=== PATIENT | male | born 1935 | race Caucasian/White ===

== ENCOUNTER → 2020-02-27 | Outpatient (CLI) | payer MEDICARE, BC ==
--- NOTE | 2020-03-04 09:38 | HM ---
HOLTER MONITOR REPORT DATE OF SERVICE: February 27, 2020. INDICATION: Palpitations. The patient was monitored for 24 hours. The baseline rhythm appeared to be sinus with a minimum heart rate of 41, max 110 and average of 58 beats per minute. Ventricular ectopic events presented in less than 1% of the total beats count and presented as an isolated PVCs only. Supraventricular ectopic events presented in less than 1% of the total beats count as well and presented as an isolated PACs with couplets and triplets. The patient did have one episode of nonsustained ventricular tachycardia seen. No evidence of any significant sinus pause or sinus arrest seen. No evidence of any atrial fibrillation seen. CONCLUSION: 1. Sinus rhythm as a baseline rhythm. 2. Rare ventricular ectopic events. 3. Rare supraventricular ectopic events. 4. The patient did have 1 short episode of SVT/AT. 5. No evidence of sinus pause or sinus arrest. 6. No evidence of any advanced AV block. 7. There is no diary attached to the study. MMODL / IJN: [id number] /
== END | disposition home or self-care (01) ==
LOC: RADECHMAIN 11:54
PROVIDERS: ATTEND Nurse Practitioner Gerontology
DX: R00.2 Palpitations (principal)
CPT/HCPCS: 93225; 93226

== ENCOUNTER → 2024-03-07 | Outpatient (CLI) | payer MEDICARE ==
[2024-03-07 15:25] LABS: ALT 37 U/L (10-49); AST 33 U/L (14-35); Chol/HDL Ratio 2.69 Ratio; VLDL Calculation 12.84 mg/dL (5.00-40.00)
== END | disposition home or self-care (01) ==
LOC: LABWHC1 08:25
PROVIDERS: ATTEND Internal Medicine Interventional Cardiology
DX: E78.2 Mixed hyperlipidemia (principal)
CPT/HCPCS: 36415; 80061; 84450; 84460